=== PATIENT | female | born 1940 | race Caucasian/White ===

== ENCOUNTER → 2017-04-13 | Outpatient (CLI) | payer MEDICARE ==
[~2017-04-13] VITALS: Ht 162.6 cm; Wt 68.0 kg
[~2017-04-13] MED LIST: ALL10TAB27 PO; ALLE25CA6 PO; CALTCHW5 PO; LIDOCAINE 2% INJ 100 MG/5 ML SDV (FOR ANES.) As Ordered ONE; NS 1,000 ML IV ONE; OMEP20CA3 PO; PROPOFOL 200 MG/20 ML VIAL As Ordered ONE; VERAP80TA PO; VITAD1000T PO
--- NOTE | 2017-04-13 08:27 | ROOR ---
Patient Name: Leonor Zaman Procedure Date: 04/13/2017 7:55 AM Date of : 1940 Age: 76 Room: [facility] Gender: Female Note Status: Finalized Procedure: Total Colonoscopy to Cecum Indications: Screening in patient at increased risk: Colorectal cancer in mother before age 60 Providers: Vern Ann MD Referring MD: BALTAZAR OLMEDO Requesting Provider: Medicines: Monitored Anesthesia Care Complications: No immediate complications. Procedure: Pre-Anesthesia Assessment: - The heart rate, respiratory rate, oxygen saturations, blood pressure, adequacy of pulmonary ventilation, and response to care were monitored throughout the procedure. The Colonoscope was introduced through the anus and advanced to the cecum, identified by appendiceal orifice and ileocecal valve. The colonoscopy was performed without difficulty. The patient tolerated the procedure well. The quality of the bowel preparation was excellent. Findings: The perianal and digital rectal examinations were normal. Non-bleeding internal hemorrhoids were found during retroflexion. The hemorrhoids were small and Grade I (internal hemorrhoids that do not prolapse). Multiple small and large-mouthed diverticula were found in the recto-sigmoid colon, sigmoid colon and descending colon. The exam was otherwise without abnormality on direct and retroflexion views. Impression: - Non-bleeding internal hemorrhoids. - Diverticulosis in the recto-sigmoid colon, in the sigmoid colon and in the descending colon. - The examination was otherwise normal on direct and retroflexion views. - No specimens collected. - The exam was otherwise normal to the cecum. Recommendation: - Patient has a contact number available for emergencies. The signs and symptoms of potential delayed complications were discussed with the patient. Return to normal activities tomorrow. Written discharge instructions were provided to the patient. - High fiber diet. - Discharge patient to home. - Continue present medications. - Repeat colonoscopy for symptoms only. - Return to referring physician. - The findings and recommendations were discussed with the patient's family. Vern Ann MD Vern Ann MD 04/13/2017 8:27:39 AM This report has been signed electronically. Number of Addenda: 0 Note Initiated On: 04/13/2017 7:55 AM Estimated Blood Loss: Estimated blood loss: none.
[2017-04-13 08:50] VITALS: BP 143/91
== END | disposition home or self-care (01) ==
LOC: M OPP 06:35
PROVIDERS: ATTEND Internal Medicine Gastroenterology
DX: Z12.11 Encounter for screening for malignant neoplasm of colon (principal); K64.0 First degree hemorrhoids; K57.30 Diverticulosis of large intestine without perforation or abscess without bleeding; Z80.0 Family history of malignant neoplasm of digestive organs; I10 Essential (primary) hypertension; R12 Heartburn; Z85.828 Personal history of other malignant neoplasm of skin; Z92.3 Personal history of irradiation; Z88.8 Allergy status to other drugs, medicaments and biological substances; Z79.899 Other long term (current) drug therapy; Z80.3 Family history of malignant neoplasm of breast

== ENCOUNTER 2019-07-17 21:21 | Inpatient (IN) | payer MEDICARE ==
[~2019-07-17] VITALS: Ht 162.6 cm; Wt 71.0 kg
[~2019-07-17 21:21] MED LIST changes: -ALL10TAB27 PO; +ALL10TAB29 PO; +CHOL100029 PO; -LIDOCAINE 2% INJ 100 MG/5 ML SDV (FOR ANES.) As Ordered ONE; -NS 1,000 ML IV ONE; -OMEP20CA3 PO; +OMEP20CA4 PO; -PROPOFOL 200 MG/20 ML VIAL As Ordered ONE; -VITAD1000T PO
[2019-07-17 21:49] LABS: BASO # 0.1 10^3/uL (0.0-0.2); BASO % 0.4 % (0.0-1.0); EOS # 0.3 10^3/uL (0.0-0.5); EOS % 2.1 % (0.0-3.0); HEMATOCRIT 44.2 % (36.0-47.0); HEMOGLOBIN 14.4 g/dl (12.0-15.5); LYMPH % 12.8 % (24.0-44.0); MEAN CORPUSCULAR HEMOGLOBIN 27.1 pg (27.0-33.0); MEAN CORPUSCULAR HGB CONC 32.6 g/dl (32.0-36.5); MEAN CORPUSCULAR VOLUME 83.2 fl (80.0-96.0); MONO % 6.3 % (0.0-5.0); NEUTROPHILS # 12.2 10^3/uL (1.5-8.5); NEUTROPHILS % 78.1 % (36.0-66.0); PLATELET COUNT, AUTOMATED 302 10^3/uL (150-450); RED BLOOD COUNT 5.31 10^6/uL (4.00-5.40); WHITE BLOOD COUNT 15.6 10^3/uL (4.0-10.0)
[2019-07-17] MEDS ORDERED: NS 500 ML IV ONE ×2 (22:00→22:45)
[2019-07-17] MEDS ORDERED: METOCLOPRAMIDE INJ 10MG/2ML VIAL (J2765) IV ONE (22:00)
[2019-07-17] MEDS ORDERED: MORPHINE 4 MG/ML 1ML VIAL/SYRINGE (J2270) IV ONE (22:00)
[2019-07-17 22:12] LABS: INR 0.96; PROTHROMBIN TIME 12.5 SECONDS (11.8-14.0)
[2019-07-17 22:13] LABS: PARTIAL THROMBOPLASTIN TIME 26.1 SECONDS (25.0-38.4)
[2019-07-17 22:23] LABS: ALBUMIN 4.1 GM/DL (3.2-5.2); ALT/SGPT 21 U/L (12-78); BILIRUBIN,DIRECT 0.2 MG/DL (0.0-0.2); BILIRUBIN,TOTAL 0.6 MG/DL (0.2-1.0); BLOOD UREA NITROGEN 12 MG/DL (7-18); CALCIUM LEVEL 9.9 MG/DL (8.8-10.2); CARBON DIOXIDE LEVEL 24 MEQ/L (21-32); CHLORIDE LEVEL 103 MEQ/L (98-107); CREATININE FOR GFR 0.86 MG/DL (0.55-1.30); GLOMERULAR FILTRATION RATE > 60.0 (>32); GLUCOSE, FASTING 148 MG/DL (70-100); LIPASE 79 U/L (73-393); POTASSIUM SERUM 4.5 MEQ/L (3.5-5.1); SODIUM LEVEL 138 MEQ/L (136-145)
[2019-07-17 22:30] LABS: APPEARANCE, URINE CLOUDY (CLEAR); BACTERIA, URINE AUTO 1+ (NEGATIVE); BILIRUBIN, URINE AUTO NEGATIVE (NEGATIVE); BLOOD, URINE BLOOD NEGATIVE (NEGATIVE); COLOR, URINE YELLOW (YELLOW); GLUCOSE, URINE (UA) AUTO NEGATIVE (NEGATIVE); KETONE, URINE AUTO NEGATIVE (NEGATIVE); LEUKOCYTE ESTERASE, URINE AUTO 2+ (NEGATIVE); MUCUS, URINE SMALL (NEGATIVE); NITRITE, URINE AUTO POSITIVE (NEGATIVE); PROTEIN, URINE AUTO 2+ mg/dL (NEGATIVE); RBC, URINE AUTO 28 /HPF (0-3); SPECIFIC GRAVITY URINE AUTO 1.014 (1.002-1.035); SQUAMOUS EPITHELIAL CELL UR AU 0 /HPF (0-6); TRIPLE PHOSPHATE CRYSTALS MODERATE; WBC, URINE AUTO 23 /HPF (0-3)
[2019-07-17] MEDS ORDERED: ISOVUE-370 76% 100ML VIAL (Q9967) As Ordered ONE (23:28)
--- NOTE | 2019-07-18 00:28 | REPVR ---
EXAM: CT Abdomen and Pelvis With Contrast EXAM DATE/TIME: 07/17/2019 10:43 PM CLINICAL HISTORY: 79 years old, female; Abdominal pain; Generalized; Prior surgery; Surgery date: 6+ months; Surgery type: Urostomy TECHNIQUE: Imaging protocol: Computed tomography of the abdomen and pelvis with intravenous contrast. Radiation optimization: All CT scans at this facility use at least one of these dose optimization techniques: automated exposure control; mA and/or kV adjustment per patient size (includes targeted exams where dose is matched to clinical indication); or iterative reconstruction. Contrast material: ISO; Contrast volume: 100 ml; Contrast route: AC; COMPARISON: No relevant prior studies available. FINDINGS: Liver: The liver attenuation is 95 Hounsfield units and the spleen is 139 Hounsfield units. Gallbladder and bile ducts: Status post cholecystectomy. Mild biliary dilation which is attributed to prior cholecystectomy and is likely physiologic. The CBD measures 11 mm. Pancreas: Normal. No ductal dilation. Spleen: Normal. No splenomegaly. Adrenals: Normal. No mass. Kidneys and ureters: Status post cystectomy with urinary diversion, apparently ileal loop with ostomy in the lower right abdominal wall. There is herniation of fat into the ostomy defect. Stomach and bowel: Borderline distention of the stomach with fluid and gas. There is a diverticulum projecting from the proximal duodenal sweep. Mild stool throughout much of the colon. Mild distal colonic diverticulosis without diverticulitis. Mild distention of small bowel segments with collapse of the distal ileum consistent with a small bowel obstruction. There appears to be a point of transition in the low right pelvis adjacent to the lateral aspect of the right symphysis pubis where there is an anastomosis. There is some stool-like material the preceding small bowel. Appendix: Small appendiceal stump or short small appendix. Intraperitoneal space: Unremarkable. No free air. No significant fluid collection. Vasculature: Incidental note of a retroaortic left renal vein. Lymph nodes: Unremarkable. No enlarged lymph nodes. Bladder: Unremarkable as visualized. Reproductive: Status post hysterectomy. Bones/joints: Unremarkable. No acute fracture. Soft tissues: Small fat filled epigastric midline ventral wall hernias which may be incisional. Other findings: Mild relaxation of the pelvic floor. IMPRESSION: 1. Small bowel obstruction with a point of transition in the low lateral right pelvis at the site of a small bowel anastomosis and may reflect adhesions and/or anastomotic stricture. 2. Status post cystectomy with ileal loop and ostomy in the right lower quadrant. There is herniation of fat into the ostomy defect. 3. Fatty infiltration of the liver. 4. There has been prior cholecystectomy and hysterectomy. 5. Mild distal colonic diverticulosis without diverticulitis. Electronically signed by: Chris Topete On 07/18/2019 00:28:27 AM
[2019-07-18] MEDS ORDERED: PRESCAP PO (02:14)
[2019-07-18] MEDS ORDERED: LOSA100T50 PO (02:14)
[2019-07-18] MEDS ORDERED: ONDANSETRON 4MG/2ML VIAL (J2405) IV PRN (03:00)
[2019-07-18] MEDS ORDERED: KETOROLAC 30 MG/ML VIAL (J1885) IV PRN (03:00)
[2019-07-18] MEDS ORDERED: METOCLOPRAMIDE INJ 10MG/2ML VIAL (J2765) IV PRN (03:00)
[2019-07-18] MEDS ORDERED: MORPHINE 4 MG/ML 1ML VIAL/SYRINGE (J2270) IV PRN (03:00)
[2019-07-18 04:20] VITALS: BP 164/88
[2019-07-18] MEDS: LR 1,000 ML IV SCH ×2 (04:39→18:08)
--- NOTE | 2019-07-18 05:04 | ECGEPIP ---
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
--- NOTE | 2019-07-18 05:21 | HPE ---
DATE OF ADMISSION: 07/18/2019 REASON FOR ADMISSION: Intestinal obstruction. HISTORY OF PRESENT ILLNESS: The patient is a pleasant 79-year-old woman who presented to the emergency department at approximately 09:30 on the evening of July 17. The patient reports that she had noted discomfort in the abdomen, starting at about 1300 on July 17. She described a rolling and cramping sensation within the abdomen. She had pain that waxed and waned somewhat but became quite persistent and significant. She had some nausea but no real emesis. At about 07:30 in the evening an ambulance was called and she was brought to the emergency department. In the emergency department she had what she described as some dry heaves but without any real volume of emesis. Because of her pain she received some morphine. She underwent evaluation with some lab work and a CT scan which reportedly showed evidence for an intestinal obstruction. I am consulted and she is now being admitted for management of her intestinal obstruction. ALLERGIES: The patient reports an allergy to DETROL LA. Her medical record suggests that there was a rash related to that. MEDICATIONS: The patient with the following medications: - omeprazole 20 mg by mouth daily - vitamin D 1000 units by mouth daily - diphenhydramine 25 mg by mouth daily - cetirizine 10 mg by mouth daily - losartan 100 mg by mouth daily - a vitamin capsule twice daily. PAST SURGICAL HISTORY: The patient has undergone: 1. Cholecystectomy previously. 2. She was treated for a Bipin cell carcinoma of the face. 3. She underwent a combined hysterectomy, cystectomy with creation of an ileal conduit urostomy back in 2005 apparently for bladder cancer. She reports having had a Pap scan recently that was negative. PAST MEDICAL HISTORY: Significant for: 1. Hypertension. 2. She denies any other significant cardiac issues. 3. She does have some gastroesophageal reflux which primarily affects her with a cough rather than heartburn. 4. She reports several urinary tract infections since her urostomy was created. 5. She denies any significant bone or joint issues. 6. She has no endocrine problems. SOCIAL HISTORY: The patient is . She celebrated her 79th birthday the day before yesterday. She is a lifetime nonsmoker and has some occasional alcohol socially. FAMILY HISTORY: Noncontributory. REVIEW OF SYSTEMS: The patient has not had any chest pain or palpitations. She denies a productive cough, wheezing or any shortness of breath. She denies any fevers or chills. She has no history of deep venous thrombosis (DVT) or pulmonary embolus. She denies any significant bone or joint issues. Last bowel movement was July 15. She reports she has not had any significant flatus today. She does report having had her shingrix immunization one day ago and had some surrounding red reaction in her left deltoid area. PHYSICAL EXAMINATION: General: The patient is sitting up in the hospital stretcher with a nasogastric tube in place putting out a small amount of watery fluid. Vital signs: Her most recent vital signs showed her to be afebrile with a pulse of 96 and blood pressure of 167/80. She is alert, oriented and cooperative. Skin: Warm and dry. HEENT: Sclerae are anicteric. Neck: Neck is supple without mass or bruit. Heart: Exam shows a regular rhythm of about 90-100. Lungs: Clear to auscultation bilaterally. Abdomen: The abdomen is mildly distended. She has a urostomy appliance on her stoma in the right lower quadrant. She has an old midline scar. Her bowel sounds are hypoactive. There is no tympany to percussion. There is no significant tenderness to percussion. She is somewhat full to palpation without any definite tenderness. There is no evident incisional or inguinal hernia. Extremities: She has palpable radial and dorsalis pedis pulses. She has no significant peripheral edema. LABORATORY STUDIES: CBC showing a white count of 16, hemoglobin of 14, hematocrit of 44 and platelet count of 302,000. Differential count showed 78% neutrophils and 13% lymphocytes. Chemistry profile showed a BUN of 12, creatinine of 0.9 and a glucose of 148. Her chemistries showed normal electrolytes and liver function tests with a lipase 79. She had a normal prothrombin time and INR and PTT. Her urine sample from her urostomy showed a specific gravity of 1.014 and was positive for nitrite, 2+ for leukocyte esterase and showed positive white cells and red cells. as well as some bacteria. IMAGING: She had a CT scan of the abdomen and pelvis which shows a stomach partially filled with fluid and some mildly dilated proximal small bowel filled with fluid. She has some surgical clips in the gallbladder fossa. Her urostomy is noted in the right lower quadrant with a suggestion of a small parastomal hernia which contains only some fat. She does have some very narrowed appearing bowel in the pelvis some of which appears to be colon but other loops are small bowel. IMPRESSION: 1. Intestinal obstruction secondary to adhesions. 2. Urostomy secondary to cystectomy for bladder cancer. 3. Hypertension. 4. Gastroesophageal reflux disease. PLAN: Patient has had an nasogastric (NG) tube inserted in the emergency department. I will admit her for ongoing treatment of her intestinal obstruction. I counseled her that there is a good chance that this will resolve without surgical intervention. She will receive intravenous (IV) hydration. I have encouraged her to be up ambulating. I will offer her low-dose Toradol or morphine as needed for pain. We will monitor her blood pressure and [place] and antihypertensives as needed. We will monitor her blood pressure and institute antihypertensives as needed. She does not appear to require any antibiotics at this time.
[2019-07-18 06:00] VITALS: BP 161/88
--- NOTE | 2019-07-18 07:24 | REP ---
Portable chest, 01:16 a.m., single AP view with the patient upright: The studies performed post NG tube placement. Comparison is a 04/15/2013. There is a nasogastric tube terminating in the abdominal left upper quadrant in satisfactory location. The lung hurtado are clear. Cardiac size is normal. The lawanda, mediastinum, skeletal structures are unremarkable. Impression: ET tube tip in satisfactory location. Otherwise, negative portable chest. Electronically Signed by Kevin Malagon MD 07/18/2019 07:16 A
[2019-07-18] MEDS: PANTOPRAZOLE 40MG INJ (PROTONIX) (C9113) IV SCH (09:10)
[2019-07-18 10:58] LABS: BLOOD UREA NITROGEN 11 MG/DL (7-18); CALCIUM LEVEL 8.9 MG/DL (8.8-10.2); CARBON DIOXIDE LEVEL 26 MEQ/L (21-32); CHLORIDE LEVEL 106 MEQ/L (98-107); CREATININE FOR GFR 0.68 MG/DL (0.55-1.30); GLOMERULAR FILTRATION RATE > 60.0 (>32); GLUCOSE, FASTING 123 MG/DL (70-100); POTASSIUM SERUM 4.2 MEQ/L (3.5-5.1); SODIUM LEVEL 141 MEQ/L (136-145)
--- NOTE | 2019-07-18 19:08 | IPN ---
DATE: 07/18/2019 HISTORY: The patient was admitted early this morning with signs and symptoms of a small bowel obstruction. She is status post a cystectomy with ileal conduit many years ago. This morning, she reports that she has had two bowel movements with some flatus. She is not having any abdominal pain currently and reports that she thinks her abdomen has decompressed somewhat. Her nasogastric (NG) tube remains in place. Vital signs show that her pulse is in the 80s to low to mid 90s. She remains afebrile. Blood pressure is excellent. Intake and output show that yesterday she had 1000 mL in in the emergency department. She has 150 mL of urine output recorded this morning with 600 mL total from her NG tube this morning. PHYSICAL EXAMINATION: The patient is alert and appears comfortable. Skin is warm and dry. Heart examination shows a regular rhythm. The lungs are clear. The abdomen does appear to be somewhat less distended than early this morning. She has bowel sounds present. There is no tympany to percussion. There is no tenderness to percussion. The abdomen is soft. LABORATORY FINDINGS: The patient had a repeat medical profile at 10:00 o'clock this morning. This showed normal electrolytes with a BUN of 11, creatinine 0.7, and a glucose of 123. IMPRESSION: The patient is doing very well and appears to be resolving her small bowel obstruction as demonstrated by passage of some stool and flatus and decompression of the abdomen. PLAN: I am going to keep her nasogastric (NG) tube in and on suction for now. She was encouraged to be up ambulatory. If in the morning she continues to show evidence of resolution of her obstruction, I will then remove her NG tube and start her on some clear liquids.
[2019-07-18 22:00] VITALS: BP 166/90
[2019-07-19 02:00] VITALS: BP 162/90
[2019-07-19 06:00] VITALS: BP 161/91
[2019-07-19] MEDS: LR 1,000 ML IV SCH ×2 (06:50→18:47)
[2019-07-19] MEDS: PANTOPRAZOLE 40MG INJ (PROTONIX) (C9113) IV SCH (08:09)
[2019-07-19] MEDS ORDERED: CETIRIZINE (ZyrTEC) 10 MG TAB PO SCH (09:00)
[2019-07-19] MEDS ORDERED: LOSARTAN 50 MG TAB PO SCH (12:00)
[2019-07-19 12:11] VITALS: BP 157/90
[2019-07-19 14:05] VITALS: BP 154/89
[2019-07-19 20:10] VITALS: BP 160/88
--- NOTE | 2019-07-20 10:31 | IPN ---
DATE: 07/19/2019 HISTORY: The patient was admitted on the morning of the 18 of July with signs and symptoms of a small bowel obstruction. She was monitored with a nasogastric tube in place and received IV hydration. This morning she reports that she had two bowel movements overnight. She has been passing some flatus. Her urine output has been good and she denies any abdominal pain. Vital signs: Show that she has been afebrile with a pulse in the 90s and 80s. Her blood pressure is good. Intake and output shows that yesterday she had 825 recorded in with 1800 out 800 of that from her nasogastric tube. She had only 100 mL recorded out in her nasogastric tube this morning. PHYSICAL EXAMINATION: The patient is alert and appears comfortable. Heart exam shows a regular rhythm. The lungs are clear. The abdomen is mildly protuberant but soft and nontender with active bowel sounds. IMPRESSION: The patient's bowel obstruction seems to be resolving or resolved. Her NG output has diminished and she is having flatus and bowel movements. She denies any abdominal pain. PLAN: I removed the patient's NG tube. She will be started on clear liquids. When she tolerates adequate fluids her IV will be discontinued. I will check back later in the afternoon or evening and if she is still doing well I will consider discharging her home if she is so desires.
== END 2019-07-19 20:10 | disposition home or self-care (01) | DRG 390 ==
LOC: M ED 21:21 → M ED INP 07-18 02:56 → M MS5PR 07-18 04:20
PROVIDERS: ADMIT Surgery; ATTEND Surgery
DX: K56.50 Intestinal adhesions [bands], unspecified as to partial versus complete obstruction (principal); K21.9 Gastro-esophageal reflux disease without esophagitis; I10 Essential (primary) hypertension; Z79.899 Other long term (current) drug therapy

== ENCOUNTER → 2021-04-25 | Outpatient (CLI) | payer MEDICARE ==
[~2021-04-25] MED LIST changes: -ALL10TAB29 PO; -ALLE25CA6 PO; +CETI-24 PO; +LOSA100T50 PO; +MULT25CA2 PO; +OMEP1CAP73 PO; -OMEP20CA4 PO; +PRESCAP PO; +VERA80TA3 PO; -VERAP80TA PO
--- NOTE | 2021-04-25 12:13 | RADONC.CN ---
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 She is seen for consideration of adjuvant RT. Diagnosis/Treatment History Oncologic History 2006 Bladder cancer [id number] s/p cystectomy and neobladder reconstruction 2014 [place] cell carcinoma [id number] s/p WLE and adjuvant RT 50 Gy in 20 fractions with electrons completed 07/18/152020 [place] cell carcinoma December 2020 noted raised lesion on the right anterior distal thigh, with a larger subcutaneous component. 02/28/21 PET-CT negative 03/19/21 WLE with graft and SLNB pT1N1a(sn)M0 stage IIIA Interval History Has no pain at the donor site or the graft site. Has no groin pain. Feels the distal thigh is swollen relative to prior to surgery. Applying Aquaphor to primary site daily and avoiding sun. Appetite good and weight stable. Past Medical History: GERD HTN Past Surgical History: As above Family History: Mother colon cancer Sister breast cancer Social History: Never smoker Drinks 1-2 drinks per week Allergies / Meds Allergies: Coded Allergies: tolterodine (Verified Allergy, Unknown, RASH, 07/17/19) Home Meds Reported Medications Vit A/Vit C/Vit E/Zinc/Copper (Preservision Areds Softgel) 1 Each Capsule, 1 CAP PO BID, CAP 07/18/19 Losartan Potassium (Losartan Potassium) 100 Mg Tablet, 100 MG PO DAILY, TAB 07/18/19 Cetirizine HCl (Cetirizine HCl) 10 Mg Tab, 10 MG PO DAILY, TAB 04/05/17 Diphenhydramine HCl (Allergy) 25 Mg Cap, 25 MG PO DAILY, CAP 04/05/17 Vitamin D (Vitamin D3) 1,000 Units Tab, 1000 UNITS PO DAILY, TAB 04/05/17 Omeprazole (Omeprazole) 20 Mg Cap, 20 MG PO DAILY, CAP 04/05/17 Review of Systems General: Reports: Normal Appetite Constitutional: Denies: Chills, Fever, Night Sweats Eyes: Denies: Pain, Vision change HEENT: Denies: Head Aches, Dysphagia, Sore Throat Skin: Denies: Rash, Lesions, Bruising Pulmonary: Denies: Dyspnea, Cough Cardiovascular: Denies: Chest Pain, Palpitations, Edema Gastrointestinal: Denies: Nausea, Vomiting, Abdominal Pain, Diarrhea Genitourinary: Denies: Dysuria, Frequency Hematologic: Denies: Bruising, Petecchia, Enlarged Lymph Nodes Musculoskeletal: Denies: Neck pain, Back pain Neurological: Denies: Weakness, Numbness, Incoordination Psych: Reports: Mood Normal; Denies: Memory Issues, Thoughts of Self Harm Vital Signs Ht 64" Wt 152 lbs BMI 26 T 96.5 P 77 RR 18 BP 137/79 O2 99% Pain 0 Fatigue 0 General Exam: Positive: Alert, Cooperative, No Acute Distress Eye Exam: Positive: PERRLA, EOMI ENT EXAM: Positive: Other ENT (Left cheek without evidence of late RT sequelae. No lesions or adenopathy) Neck Exam: Negative: Thyromegaly, Lymphadenopathy Chest Exam: Positive: Clear to auscultation Heart Exam: Positive: Rate Normal Extremity Exam: Positive: Other (Left anterior distal thigh with surgical site, graft well-healed ~ 6cm wide, no popliteal adenopathy, right groin incision well healed. Donor site right proximal lateral thigh well healed); Negative: Edema Skin Exam: Positive: Nl turgor and temperature; Negative: Rash Neuro Exam: Positive: Normal Gait, Normal Speech, Cranial Nerves 3-12 NL Psych Exam: Positive: Mental status NL, Mood NL, Memory Intact Diagnostic and Laboratory Diagnostic Review Radiologic images, relevant labs and pathology reports were personally reviewed and discussed with Ms. Zaman. Assessment and Plan Impression Ms. 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 She is seen for consideration of adjuvant RT. 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 Zaman regarding the diagnosis at hand and available therapeutic options. She is very fit. Reports she did well with adjuvant RT to the left cheek in 2015 no ulceration/minimal reaction. She has a well-healed graft and I discussed that now is an appropriate time to initiate adjuvant RT. She is aware of the implications of the positive sentinel node. I explained that in this situation I recommend RT to the primary site with wide margins incorporating the whole graft, as well as treating the right groin prop hylactically. The length of the field may present a challenge for incorporation of both sites in a single isocenter but this is my preferred approach if we are able. To that end I anticipate using VMAT and bolus over the primary site. I will give 54 Gy in 27 to the primary site and a slightly lower dose to the ipsilateral groin. We discussed the logistics of receiving radiation therapy in detail including the need for a 1-time planning session. This can occur next week. We reviewed the side effects of treatment including fatigue, skin reaction, skin pigmentation changes, and late lymphedema, which will be mitigated by use of VM AT. After discussing the risks, benefits and alternatives to radiation therapy, Ms. Zaman was amenable to pursuing radiotherapy. All questions were answered to the patient's satisfaction. We instructed the patient that if there were any questions,concerns or changes in clinical status in the interim to contact us. Recommendations Adjuvant RT to the primary site and right groin 54 Gy in 27 fractions with VMAT and bolus Simulation next week Billing Statement Total time of [48] minutes was spent preparing for the visit [5], obtaining HPI [7], examining the patient [4], reviewing diagnostic tests [4], discussing management options [18], coordinating care [1], and writing this note [9]. SHWETA CHERRY MD Apr 25, 2021 12:13
== END ==
LOC: M ONCR 09:53
PROVIDERS: ATTEND General Practice
DX: C4A.71 Merkel cell carcinoma of right lower limb, including hip (principal); I10 Essential (primary) hypertension; K21.9 Gastro-esophageal reflux disease without esophagitis; Z79.899 Other long term (current) drug therapy; Z80.0 Family history of malignant neoplasm of digestive organs; Z80.3 Family history of malignant neoplasm of breast; Z85.51 Personal history of malignant neoplasm of bladder; Z88.8 Allergy status to other drugs, medicaments and biological substances; Z92.3 Personal history of irradiation

== ENCOUNTER 2021-05-30 11:05 | Outpatient (RCR) | payer MEDICARE | END 2021-05-31 | LOC: M ONCR 11:05 | PROVIDERS: ATTEND General Practice | DX: C4A.71 Merkel cell carcinoma of right lower limb, including hip (principal) ==

== ENCOUNTER 2021-06-20 11:05 | Outpatient (RCR) | payer MEDICARE ==
[~2021-06-20 11:05] MED LIST changes: +LIDO5CRE6 TOP; +LOSA100T45 PO; -LOSA100T50 PO
[2021-08-05] MEDS ORDERED: FOAMPAD2 TP (09:22)
== END 2021-07-01 ==
LOC: M ONCR 11:05
PROVIDERS: ATTEND General Practice
DX: C4A.71 Merkel cell carcinoma of right lower limb, including hip (principal)

== ENCOUNTER → 2021-07-10 | Outpatient (CLI) | payer MEDICARE ==
[~2021-07-10] MED LIST changes: -LOSA100T45 PO; +LOSA100T50 PO
--- NOTE | 2021-07-10 11:41 | RADENCPD ---
Date/Time of Encounter Date of Encounter: Jul 10, 2021 Time of Encounter: 11:39 Encounter Leonor came in for a skin check. The right knee wound is 70% re-epithelialized. She is healing well. Continue polymem foam for now until wound is completely covered by skin then d/c dressings. Will follow up with her via phone in 2 months time. She will have her PET-CT in [place] (not [place]) as her relocation plans have changed. She may call anytime with concerns. SHWETA CHERRY MD Jul 10, 2021 11:41
== END ==
LOC: M ONCR 09:53
PROVIDERS: ATTEND General Practice
DX: C4A.71 Merkel cell carcinoma of right lower limb, including hip (principal)

== ENCOUNTER → 2021-07-23 | Outpatient (CLI) | payer MEDICARE ==
--- NOTE | 2021-07-23 14:51 | RADENCPD ---
Date/Time of Encounter Date of Encounter: Jul 23, 2021 Time of Encounter: 14:49 Encounter Lucy came in for a quick skin check today. She has been continuing the polymem foam with good effect, the area of ulceration on the right distal thigh is reduced to a quater-sized area. The remainder is completely epithelialized with no evidence of nodularity or recurrent disease. The right groin has no visible post-RT sequelae remaining. She is due for PET CT in ~2 months time, and will follow up with me by phone thereafter. If no progression is noted I will refer her to [facility] for follow up and survivorship care. SHWETA CHERRY MD Jul 23, 2021 14:51
== END ==
LOC: M ONCR 14:00
PROVIDERS: ATTEND General Practice
DX: C4A.71 Merkel cell carcinoma of right lower limb, including hip (principal); L59.8 Other specified disorders of the skin and subcutaneous tissue related to radiation

== ENCOUNTER → 2021-09-24 | Outpatient (CLI) | payer MEDICARE ==
[~2021-09-24] MED LIST changes: +FOAMPAD2 TP; +LOSA100T45 PO; -LOSA100T50 PO
== END ==
LOC: M ONCR 15:39
PROVIDERS: ATTEND General Practice
DX: C4A.71 Merkel cell carcinoma of right lower limb, including hip (principal)

== ENCOUNTER → 2022-06-30 | Outpatient (CLI) | payer MEDICARE | LOC: M WHC 12:35 | DX: N64.52 Nipple discharge (principal); Z80.3 Family history of malignant neoplasm of breast | CPT/HCPCS: 77066; G0279 ==